=== PATIENT | male | born 1950 | race Caucasian/White ===

== ENCOUNTER 2023-01-06 05:31 | Observation (INO) ==
[~2023-01-06 05:31] MED LIST: Naloxone 0.4 mg VIAL 0.4 mg/ml 1 ml VIAL IV PRN; Ondansetron 4 mg VIAL 2 MG/ML 2 ml VIAL IV PRN; fentaNYL 100 mcg/2 ml 50 MCG/ML VIAL IV PRN
[2023-01-06] MEDS ORDERED: Buffered Lidocaine 1% SYRIN 1 ml INTRADERM ONE (06:00)
[2023-01-06] MEDS ORDERED: Lactated Ringers 1000 ml BAG 1,000 ML IV SCH (06:00)
[2023-01-06] MEDS ORDERED: ceFAZolin 2 GM in NS PREMIX 0 GM/0 ML BAG IVPB ONE (06:15)
[2023-01-06] MEDS ORDERED: cefTRIAXone 2 gm/50 mL D5W 2 GM/50 ML BAG IV ONE (06:20)
[2023-01-06 06:26] LABS: Rapid COVID-19 Molecular Undetected (Undetected)
[2023-01-06] MEDS ORDERED: Propofol 10 MG/ML 20 ML BTL ONE (07:07)
[2023-01-06] MEDS ORDERED: Lidocaine 2% PF 5 ML VIAL ONE (07:07)
[2023-01-06] MEDS ORDERED: Midazolam 2 mg/2 ml VIAL 1 mg/ml 2 ml VIAL (2 mg) ONE (07:07)
[2023-01-06] MEDS ORDERED: fentaNYL 100 mcg/2 ml 50 MCG/ML VIAL ONE (07:07)
[2023-01-06] MEDS ORDERED: oxyCODONE/Acetamin 5/325 mg TAB PO PRN (14:20)
[2023-01-06] MEDS ORDERED: Lidocaine 2% JELLY 6 ML Topical TOPICAL PRN (14:25)
[2023-01-06] MEDS: NS 0.9% 1000 ml BAG 1,000 ML IV SCH ×2 (14:37→21:14)
[2023-01-06] MEDS: SEMAGLUTIDE 7 MG PO SCH (15:33)
[2023-01-06] MEDS: Sulfamethox/Trimethoprim DS TAB 800/160 mg PO SCH (21:03)
[2023-01-07] MEDS: NS 0.9% 1000 ml BAG 1,000 ML IV SCH (03:55)
[2023-01-07] MEDS ORDERED: cefTRIAXone 1 gm/50 mL D5W 1 GM/50 ML BAG IV ONE (07:00)
[2023-01-07] MEDS: Sulfamethox/Trimethoprim DS TAB 800/160 mg PO SCH (07:37)
[2023-01-07] MEDS: SEMAGLUTIDE 7 MG PO SCH (08:25)
[2023-01-07] MEDS ORDERED: DAPAGLIFLOZIN 10 MG TAB (NF) PO SCH (09:00)
[2023-01-07] MEDS ORDERED: CALCIPOTRIENE TOPICAL SCH (09:00)
[2023-01-07 10:28] VITALS: BP 157/72
== END 2023-01-07 11:28 | disposition home or self-care (01) ==
LOC: OR 05:31 → SSU 05:31
PROVIDERS: ADMIT Urology; ATTEND Urology